=== PATIENT | female | born 1960 | race Caucasian/White ===

== ENCOUNTER 2017-09-16 12:16 | Emergency (ER) | payer OTHER ==
[~2017-09-16] VITALS: Ht 170.2 cm; Wt 90.0 kg
[2017-09-16] MEDS ORDERED: VICODIN1 TA1 PO (14:51)
[2017-09-16] MEDS ORDERED: WELLBUTRIN SR150 MG PO (14:51)
[2017-09-16] MEDS ORDERED: LORATADINE10 M1 PO (14:52)
[2017-09-16] MEDS ORDERED: PRILOSEC20 MG PO (14:52)
[2017-09-16] MEDS ORDERED: METFORMIN500 MG PO (14:53)
[2017-09-16 14:56] VITALS: BP 130/70
== END 2017-09-16 15:02 | disposition home or self-care (01) | DRG 914 ==
LOC: ED 12:16
DX: S09.90XA Unspecified injury of head, initial encounter (principal); R22.0 Localized swelling, mass and lump, head; W17.89XA Other fall from one level to another, initial encounter; Y93.E9 Activity, other interior property and clothing maintenance; Y92.008 Other place in unspecified non-institutional (private) residence as the place of occurrence of the external cause